=== PATIENT | female | born 1950 | race Caucasian/White ===

== ENCOUNTER 2018-11-04 16:55 | Inpatient (IN) ==
[2018-11-04] MEDS ORDERED: AMBIEN PO PRN (17:12)
[2018-11-04] MEDS ORDERED: NS 1,000 ML IV SCH (17:12)
[2018-11-04] MEDS ORDERED: TYLENOL PO PRN (17:12)
[2018-11-04 17:55] LABS: MCH 30.9 PG (27-31); MCHC 32.5 g/dL (33-37); MPV 9.9 FL (7.4-10.4); RBC 4.21 XMIL (4.2-5.4); RDW 13.6 % (11.5-14.5); WBC 7.75 X1000 (4.8-10.8)
[2018-11-04] MEDS: FLAGYL 500 MG/NS 500 MG/100 ML IVPB IV SCH ×2 (19:13→22:28)
[2018-11-04 19:25] LABS: CALCIUM 9.1 mg/dL (8.8-10.2); CREATININE 1.1 mg/dL (0.5-0.9); POTASSIUM 3.5 mmol/L (3.5-5.1)
[2018-11-04] MEDS ORDERED: LOPRESSOR PO SCH (21:00)
[2018-11-04] MEDS: MYSOLINE PO SCH (21:37)
[2018-11-04] MEDS: BUSPAR PO SCH (21:38)
[2018-11-04] MEDS: LOVENOX SUBQ SCH (21:39)
[2018-11-04] MEDS: LIPITOR PO SCH (21:39)
[2018-11-04] MEDS ORDERED: NORCO-10 PO ONE (22:10)
[2018-11-04] MEDS: PHENERGAN IV PRN (22:49)
[2018-11-05] MEDS: FLAGYL 500 MG/NS 500 MG/100 ML IVPB IV SCH ×3 (05:11→16:25)
[2018-11-05] MEDS ORDERED: NS 250 ML IV ONE (07:30)
[2018-11-05] MEDS ORDERED: NS 500 ML IV ONE (08:41)
[2018-11-05] MEDS: MYSOLINE PO SCH ×2 (08:51→20:17)
[2018-11-05] MEDS: ASPIRIN PO SCH (08:51)
[2018-11-05] MEDS: PAXIL PO SCH (08:51)
[2018-11-05] MEDS: BUSPAR PO SCH ×2 (08:52→20:16)
[2018-11-05] MEDS: NORCO-10 PO SCH ×2 (08:54→20:16)
[2018-11-05] MEDS: FLEXERIL PO SCH ×2 (08:56→20:17)
[2018-11-05] MEDS ORDERED: FLEXERIL PO SCH (09:00)
[2018-11-05 09:53] LABS: CALCIUM 8.4 mg/dL (8.8-10.2); CREATININE 1.1 mg/dL (0.5-0.9); POTASSIUM 3.3 mmol/L (3.5-5.1)
[2018-11-05] MEDS: SODIUM CHLORIDE 0.9% INJ PRN (11:52)
[2018-11-05] MEDS: PHENERGAN IV PRN ×2 (11:52→20:15)
[2018-11-05] MEDS ORDERED: KLOR-CON PO ONE (12:15)
[2018-11-05] MEDS: LEVAQUIN 500 MG/D5W 500 MG/100 ML IVPB IV SCH (13:08)
[2018-11-05] MEDS: NS 1,000 ML IV SCH (13:08)
[2018-11-05] MEDS: LIPITOR PO SCH (20:16)
[2018-11-05] MEDS: AMBIEN PO PRN (20:17)
[2018-11-05] MEDS: LOVENOX SUBQ SCH (20:24)
[2018-11-06] MEDS: FLAGYL 500 MG/NS 500 MG/100 ML IVPB IV SCH ×5 (01:20→23:04)
[2018-11-06] MEDS: NS 1,000 ML IV SCH ×2 (02:28→16:45)
[2018-11-06] MEDS: SODIUM CHLORIDE 0.9% INJ PRN ×2 (02:29→23:04)
[2018-11-06] MEDS: PHENERGAN IV PRN ×4 (02:29→23:04)
[2018-11-06] MEDS: ASPIRIN PO SCH (08:24)
[2018-11-06] MEDS: BUSPAR PO SCH ×2 (08:24→20:59)
[2018-11-06] MEDS: MYSOLINE PO SCH ×2 (08:24→20:58)
[2018-11-06] MEDS: PAXIL PO SCH (08:25)
[2018-11-06] MEDS: NORCO-10 PO SCH ×2 (08:25→20:58)
[2018-11-06 09:18] LABS: AGAP 5; CHLORIDE 108 mmol/L (98-107); POTASSIUM 3.5 mmol/L (3.5-5.1); SODIUM 139 mmol/L (136-145); TCO2 26 mmol/L (25-35)
[2018-11-06 09:19] LABS: BUN 10 mg/dL (8-22); CALCIUM 8.2 mg/dL (8.8-10.2); COSMO 276; CREATININE 0.9 mg/dL (0.5-0.9); ESTIMATED GFR > 60; GLUCOSE 96 mg/dL (70-104)
[2018-11-06] MEDS: FLEXERIL PO SCH ×2 (09:37→20:59)
[2018-11-06 09:46] LABS: PREALBUMIN 16.3 mg/dL (20-40)
[2018-11-06 09:48] LABS: HEMATOCRIT 30.9 % (37.0-47.0); HEMOGLOBIN 10.1 g/dL (12.0-16.0); MCH 30.7 PG (27-31); MCHC 32.7 g/dL (33-37); MCV 93.9 FL (81-99); MPV 9.8 FL (7.4-10.4); RBC 3.29 XMIL (4.2-5.4); RDW 13.5 % (11.5-14.5); WBC 5.31 X1000 (4.8-10.8)
[2018-11-06] MEDS: LEVAQUIN 500 MG/D5W 500 MG/100 ML IVPB IV SCH (12:46)
[2018-11-06] MEDS: LIPITOR PO SCH (20:58)
[2018-11-06] MEDS: AMBIEN PO PRN (20:58)
[2018-11-06] MEDS: LOVENOX SUBQ SCH (20:59)
[2018-11-07] MEDS: NS 1,000 ML IV SCH ×2 (03:03→05:49)
[2018-11-07] MEDS: FLAGYL 500 MG/NS 500 MG/100 ML IVPB IV SCH (05:22)
[2018-11-07] MEDS ORDERED: BOOSTRIX VACCINE IM ONE (08:06)
[2018-11-07] MEDS: BUSPAR PO SCH (08:48)
[2018-11-07] MEDS: NORCO-10 PO SCH (08:49)
[2018-11-07] MEDS: MYSOLINE PO SCH (08:49)
[2018-11-07] MEDS: FLEXERIL PO SCH (08:49)
[2018-11-07] MEDS: ASPIRIN PO SCH (08:49)
[2018-11-07] MEDS: PAXIL PO SCH (08:50)
[2018-11-07] MEDS ORDERED: LEVAQUIN PO SCH (09:00)
[2018-11-07 09:07] VITALS: BP 126/51
[2018-11-07] MEDS ORDERED: FLAGYL PO SCH (13:00)
--- NOTE | 2018-11-07 14:47 | PROGRESS NOTE ---
DATE: 11/05/2018 SUBJECTIVE: Mrs. Dahl has had no further nausea, vomiting or diarrhea. She is tolerating clear liquids without nausea, vomiting or worsening abdominal pain. OBJECTIVE: Temperature 98.1 degrees, pulse 77, respiratory rate 18, blood pressure 98/45. CV: Regular rate and rhythm. Lungs: Clear. Abdomen: Soft, nontender with active bowel sounds, no hepatosplenomegaly, no abdominal bruits. ASSESSMENT/PLAN: 1. Orthostatic hypotension secondary to volume depletion due to gastrointestinal losses. 2. Blood pressure is a little bit low this morning at 98/45. I will hold the metoprolol. I will give her another liter of fluid. 3. We will advance her to a gastrointestinal soft diet. cc: Satya Costello MD
--- NOTE | 2018-11-07 18:01 | PROGRESS NOTE ---
DATE: 11/05/2018 SUBJECTIVE: I came by to see Ms. Dahl again during lunch. Since I saw her this morning, she has had additional episodes of watery explosive diarrhea. Stool studies were negative for C. difficile toxin and antigen. Her blood pressure was low at 98/40. She feels dizzy and lightheaded. OBJECTIVE: Temperature 97.9 degrees, pulse 74, respirations 18, BP 90/43. CV: Regular rate and rhythm. Lungs clear. Abdomen soft, diffusely tender. No rebound or guarding. ASSESSMENT AND PLAN: Volume depletion secondary to gastrointestinal losses. I suspect that she has some sort of colitis. We will continue intravenous Flagyl and add intravenous Levaquin 500 mg daily. We will continue to hold metoprolol as well as Lasix. We will began normal saline at 75 mL/h. Given her clinical presentation and comorbid condition, I do not believe that she is stable for discharge. We will switch her from outpatient status to inpatient status. cc: Satya Costello MD
--- NOTE | 2018-11-09 05:01 | DISCHARGE SUMMARY ---
ADMISSION DATE: 11/04/2018 DISCHARGE DATE: 11/07/2018 DISCHARGE DIAGNOSES: 1. Bacterial colitis. 2. Volume depletion secondary to gastrointestinal losses. 3. Parkinson disease. 4. Mixed hyperlipidemia. 5. Gastroesophageal reflux disease without esophagitis. 6. Chronic pain disorder. 7. Major depression. 8. Orthostatic hypotension. 9. Chronic congestive heart failure secondary to diastolic dysfunction. DISCHARGE INSTRUCTIONS: 1. Return to clinic in 1 week to see me, Dr. Jimbo Costello, in anticipation of a transition of care visit. 2. Activity as tolerated. 3. GI soft diet. 4. Medications: BuSpar 7.5 mg b.i.d., metronidazole 250 mg t.i.d. for 5 days, Flexeril 10 mg b.i.d., Levaquin 500 mg daily for 5 days, Wilmot 10 one q.12 hours p.r.n. pain, Paxil 10 mg daily, primidone 250 mg daily, Phenergan 25 mg q.6 hours as needed for nausea and vomiting, omeprazole 40 mg daily, aspirin 325 mg daily, atorvastatin 80 mg at bedtime, zolpidem CR 6.25 mg at bedtime p.r.n. insomnia, fentanyl pain pump. DISCHARGE PHYSICAL EXAMINATION: General: This is a well-developed, well-nourished 68-year-old lady in no apparent distress. She is afebrile. Vital signs are stable. Cardiovascular: Regular rate and rhythm. Lungs: Clear. Abdomen: Soft, nontender, with active bowel sounds. No hepatosplenomegaly. No abdominal bruits. SUMMARY: Mrs. Dahl presented to my office with nausea, vomiting and explosive watery diarrhea. She was orthostatic in my office. I initially admitted her as an outpatient to [facility] where we cautiously rehydrated her with normal saline and began IV Flagyl pending stool studies. We began clear liquids on the morning of 11/05/2018. She had no further diarrhea since admission and was able to tolerate clear liquids. Her blood pressure was low at 98/45. We held the metoprolol. We gave her a bolus of normal saline. Because of the low blood pressure, we did not feel that she was ready for discharge and she was converted from outpatient status to inpatient status. On 11/06/2018, she reported that she had several episodes of diarrhea on the afternoon and evening of 11/05/2018. Her blood pressure was trending up with fluids. Stool studies were negative for C. difficile toxin. I added Levaquin 500 mg IV daily. Her nausea, vomiting and diarrhea improved and we were able to switch her to a GI soft diet. She was able to tolerate a GI soft diet at breakfast and lunch on 11/07/2018 without nausea, vomiting, or diarrhea. She will be continued on an additional 5-day course of oral Levaquin and Flagyl. Having reached maximum hospital benefit, the patient was discharged in stable condition. cc: Satya Costello MD
== END 2018-11-07 12:32 | disposition home or self-care (01) | DRG 372 ==
LOC: DIRADM → 3N 16:55
PROVIDERS: ADMIT Internal Medicine; ATTEND Internal Medicine
CPT/HCPCS: 80048; 84134; 85027; 87324; 87449; 90715; A9270; J1650; J1956; J2550; J7030; J7040; S0030

== ENCOUNTER 2019-01-08 15:21 | Inpatient (IN) ==
[2019-01-08 16:32] LABS: BILIRUBIN URINE NEGATIVE (NEGATIVE); BLOOD URINE 3+ (NEGATIVE); CLARITY VERY CLOUDY (CLEAR); COLOR YELLOW; GLUCOSE URINE NEGATIVE (NEGATIVE); KETONE URINE NEGATIVE (NEGATIVE); LEUKOCYTES URINE 2+ (NEGATIVE); NITRITE URINE POSITIVE (NEGATIVE); PROTEIN URINE 1+(30 mg/dL) mg/dL (NEGATIVE); UROBILINOGEN URINE NORMAL
[2019-01-08 16:43] LABS: BASO# 0.02 X1000 (0.0-0.2); BASO% 0.2 % (0.0-0.8); EOS# 0.21 X1000 (0.0-0.7); EOS% 2.6 % (0.0-10.0); HEMATOCRIT 36.9 % (37.0-47.0); HEMOGLOBIN 12.5 g/dL (12.0-16.0); IMM GRAN# 0.02 X1000 (0.0-0.04); IMM GRAN% 0.2 % (0.0-0.5); LYMPH# 2.42 X1000 (1.2-3.4); LYMPH% 29.7 % (20.5-51.1); MCH 31.3 PG (27-31); MCHC 33.9 g/dL (33-37); MCV 92.5 FL (81-99); MONO# 0.56 X1000 (0.11-0.59); MONO% 6.9 % (1.7-9.3); MPV 10.2 FL (7.4-10.4); NEUT# 4.93 X1000 (1.4-6.5); NEUT% 60.4 % (42.2-75.2); PLT 188 X1000 (130-400); RBC 3.99 XMIL (4.2-5.4); RDW 13.6 % (11.5-14.5); WBC 8.16 X1000 (4.8-10.8)
[2019-01-08 16:53] LABS: AGAP 10; ALBUMIN 3.5 g/dL (3.5-5.0); ALKALINE PHOSPHATASE 137 U/L (32-104); BUN 13 mg/dL (8-22); CALCIUM 8.3 mg/dL (8.8-10.2); CHLORIDE 101 mmol/L (98-107); COSMO 273; CREATININE 0.9 mg/dL (0.5-0.9); ESTIMATED GFR > 60; GLUCOSE 108 mg/dL (70-104); GOT 21 U/L (10-30); GPT 12 U/L (10-36); POTASSIUM 3.5 mmol/L (3.5-5.1); SODIUM 136 mmol/L (136-145); TCO2 25 mmol/L (25-35); TOTAL PROTEIN 7.1 g/dL (6.3-8.3)
--- NOTE | 2019-01-08 17:22 | PROVIDER DOCUMENTATION ---
This chart was entered by Sidra Hull Scribe, acting as scribe for Michael Chu MD. HPI-General Adult - General Chief Complaint: UTI Symptoms Stated Complaint: UTI Time Seen by Provider: 01/08/19 15:25 Source: patient, EMS (first response) Allergies/Adverse Reactions: Patient Allergies Allergy/AdvReac Type Severity Reaction Status Date / Time Penicillins Allergy Severe ANAPHYLAXIS Verified 01/19/17 18:49 ceftriaxone [From Rocephin] Allergy HIVES Verified 01/19/17 18:49 ibandronate sodium Allergy "severe Verified 01/19/17 18:49 [From Boniva] intestinal problems" nitrofurantoin Allergy HIVES Verified 01/19/17 18:49 macrocrystalline * [From Macrodantin] ondansetron HCl * Allergy HIVES Verified 01/19/17 18:49 [From Zofran (as hydrochloride)] vancomycin Allergy HIVES Verified 01/19/17 18:49 Home Medications: Home Medication List Medication Instructions Recorded Confirmed Last Taken Type Promethazine [Phenergan] 25 mg PO Q6H PRN PRN 03/03/16 11/04/18 1 Day Ago History ~11/03/18 ATORVAstatin [Lipitor] 80 mg PO HS 01/11/17 11/04/18 1 Day Ago History ~11/03/18 Aspirin 325 mg PO DAILY 01/11/17 11/04/18 1 Day Ago History ~11/03/18 Omeprazole 40 mg PO DAILY 01/11/17 11/04/18 1 Day Ago History ~11/03/18 Hydrocodone/APAP 10 mg/325 mg 1 ea PO Q12H PRN PRN 11/04/18 11/04/18 1 Day Ago History [Belsano-10] ~11/03/18 Zolpidem C.r. [Ambien Cr] 6.25 mg PO QHS 11/04/18 11/04/18 1 Day Ago History ~11/03/18 Buspirone [Buspar] 7.5 mg PO BID tab 11/07/18 Unknown Rx Cyclobenzaprine [Flexeril] 10 mg PO BID tab 11/07/18 Unknown Rx Hydrocodone/APAP 10 mg/325 mg 1 ea PO BID tab 11/07/18 Unknown Rx [Belsano-10] Levofloxacin [Levaquin] 500 mg PO DAILY #5 tab 11/07/18 Unknown Rx Metronidazole [Flagyl] 250 mg PO TID #15 tab 11/07/18 Unknown Rx Paroxetine [Paxil] 10 mg PO DAILY tab 11/07/18 Unknown Rx Primidone [Mysoline] 250 mg PO BID tab 11/07/18 Unknown Rx - History of Present Illness -Gen Adult Nature of Presenting Problems: 68 yowf presents to the ed via ems (first response) with possible UTI. pt was at [facility] and rehab was released today per ems with no where to go home to and was told to bring to ed. pt has been told she is accepted to [facility] but paperwork is not completed so pt can not be accepted there as well. pt is tearful on exam and has extensive medical hx. pt had bladder removed and has ostomy. pt is depressed on exam and has hx of chronic pain but denies any new pain or complaint Location of Pain/Injury: reports: none Pain Radiation: reports: no radiation Quality of Pain: reports: other (has chronic pain but denies new pain) Severity: reports: mild Onset/Duration: reports: unsure Timing: reports: still present Context/Activities at Onset: reports: light activity Modifying Factors: improves with: nothing Associated Symptoms: reports: back/neck pain (chronic), genitourinary problems (possible UTI). denies: chest pain, cough, dizziness, nausea, shortness of breath, vomiting Similar Symptoms Previously?: Yes (frequent UTI) Recently seen or treated by another doctor?: No Review of Systems - Adult - REVIEW OF SYSTEMS - ADULT Constitutional: denies: chills, fever Eyes: reports: no symptoms reported Ears, Nose, Mouth & Throat: reports: no symptoms reported Cardiovascular: denies: chest pain, syncope Respiratory: denies: shortness of breath, wheezing Gastrointestinal: reports: no symptoms reported Genitourinary: reports: see HPI, frequent UTI's, other (urine is cloudy in orozco bag) Musculoskeletal: reports: see HPI, neck pain (chronic) Integumentary: reports: no symptoms reported Neurological: denies: dizziness/vertigo, headache/migraines Psychiatric: reports: no symptoms reported Endocrine: reports: no symptoms reported Hematologic/Lymphatic: reports: no symptoms reported Allergic/Immunologic: reports: no symptoms reported All Other Systems: Reviewed and Negative Past History - Adult - PAST MEDICAL HISTORY-ADULT Review of Records: reports: Old Records Reviewed, Nursing Assessment Review, Medications Reviewed, Social history reviewed & non-contributory. Major Childhood Illnesses: reports: denies history Cardiovascular: reports: CHF Respiratory: reports: denies history Gastrointestinal: reports: GERD Obstetrical/Gynecological: reports: denies history Genitourinary: reports: kidney disease Musculoskeletal: reports: chronic pain Neurological: reports: Parkinson's Psychiatric: reports: denies history Endocrine/Immune: reports: denies history Other Conditions: reports: denies history - PRIOR SURGERIES/PROCEDURES Surgical/Procedure History: reports: appendectomy, cholecystectomy, back/neck (neck sx), other (removed bladder) - IMMUNIZATION STATUS Childhood Immunizations: See Nurse Assessment Flu Vaccine: See Nurse Assessment - FAMILY HISTORY Family History: reviewed, not pertinent - SOCIAL HISTORY Smoking: denies Substance Use: denies Living Situation: care facility Physical Exam-General - PHYSICAL EXAM-ADULT Initial Vital Signs Reviewed: Yes - CONSTITUTIONAL General Appearance: alert, no apparent distress, thin - EYES Eyes: PERRL/EOMI, pink conjunctivae - HEAD, EARS, NOSE, MOUTH & THROAT HENMT: moist mucous membranes - NECK Neck: full range of motion, normal inspection - RESPIRATORY Respiratory: chest non-tender, lungs clear, normal breath sounds - CARDIOVASCULAR Cardiovascular: normal peripheral pulses, regular rate, rhythm - CHEST (BREASTS) Chest/Breast: deferred - GASTROINTESTINAL (ABDOMEN) Abdominal Exam: normal bowel sounds, non tender, soft, other (pt has ostomy and has had bladder removed) - LYMPHATIC Lymphatic: no adenopathy - MUSCULOSKELETAL Back Exam: normal inspection Extremity: normal capillary refill, pelvis stable - SKIN Integumentary: abrasion(s) (to left lateral forehead and healing), ecchymosis (to left forehead), pallor (generalized) - NEUROLOGIC Neurologic: grossly normal - PSYCHIATRIC Psych/Mental Status: normal thought content, normal thought process, oriented x 3, depressed affect Progress - PLAN OF CARE/RESULTS Progress/Plan/Lab Results: Vital Signs - 8 hr 01/08/19 15:29 Temperature 98.3 F Pulse Rate 91 H Respiratory Rate 20 Blood Pressure 126/59 O2 Sat by Pulse Oximetry 97 Orders Category Date Time Status CBC WITH ELECTRONIC DIFF [HEME] Stat Lab 01/08/19 15:25 Uncollected COMPREHENSIVE METABOLIC PANEL [CHEM] Stat Lab 01/08/19 15:25 Uncollected ua [URINALYSIS PL W/POSS RFLX CULT] [URINALYSIS] Stat Lab 01/08/19 15:25 Uncollected Result Diagrams: 01/08/19 16:10 01/08/19 16:10 - REASSESSMENT Reassessment #1 Time Reassessed: 16:05 (dr chu at bedside) Status: unchanged Reassessment #2 Time Reassessed: 17:01 (dr reynolds at [facility]) Status: unchanged - CONSULTS/PCP/HOSPITALIST Notification #1 *Consult/PCP/Hospitalist*: cele WATER QUALITY SPECIALIST for hospitalist Time Discussed: 17:10 Consult Disposition: Will see in ED Departure - Departure Date of Disposition Decision: 01/08/19 Time of Disposition Decision: 17:20 DIAGNOSIS: UTI (urinary tract infection) Disposition: ADMITTED INPATIENT 09 Certified Medical Emergency: Emergent Condition: Fair Referrals and Follow-Ups: None,PCP [Primary Care Provider] - - Critical Care Note This patient required my direct & personal management of CC.: Yes Total Time (mins): 32 Critical Care Statement: This patient required my direct personal management to treat or rule out processes, the absence of which, could potentiallly result in sudden, clinically significant life or limb threatening deterioration. Attestation - Physician/ HIREN Attestation Patient care was provided by Advanced Practice Provider:: No The physician spent face to face time with patient:: Yes Advanced Practice Provider documentation review:: Supervising physician onsite and consulted in the evaluation and care of this patient. The physician did have a face to face encounter with the patient. This chart was documented by the indicated scribe, (Sidra Hull Scribe) and accurately reflects the services I performed and decisions made by me, Michael Chu MD, as attested by the provider's signature.
[2019-01-08 17:31] LABS: URINE BACTERIA 3+ /HFP
[2019-01-08 17:32] LABS: URINE RBC 20-40 /HPF (<10)
[2019-01-08 17:33] LABS: URINE CAST NONE SEEN /LPF; URINE EPITHELIAL CELLS <10 /HPF (<10); URINE YEAST NONE SEEN /HPF
[2019-01-08 17:34] LABS: URINE CRYSTAL TRIPLE PHOS PRESENT /HPF; URINE SOURCE CATH
[2019-01-08] MEDS ORDERED: ATIVAN IV ONE (18:56)
--- NOTE | 2019-01-08 19:02 | HISTORY AND PHYSICAL ---
ADDENDUM: Patient seen and examined. It does appears as though she has a probable urinary tract infection. She is confused, disoriented. We are going to admit her to the hospital, antibiotics, and will follow. cc: Leander Rodriguez MD
[2019-01-08] MEDS ORDERED: ATIVAN PO PRN (19:05)
[2019-01-08] MEDS ORDERED: DUONEB (A & A) INH PRN (19:05)
[2019-01-08] MEDS ORDERED: TYLENOL PO PRN (19:13)
[2019-01-08] MEDS ORDERED: NS 1,000 ML IV SCH (19:15)
[2019-01-08] MEDS ORDERED: HALDOL PO SCH (19:15)
--- NOTE | 2019-01-08 20:09 | HISTORY AND PHYSICAL ---
PRIMARY CARE PHYSICIAN: Satya Costello MD. CHIEF COMPLAINT: Possible urinary tract infection. HISTORY OF PRESENT ILLNESS: This is a 68-year-old female who presents to the emergency room via EMS from [facility]. According to the emergency room physician's note the patient was released from [facility] this afternoon with nowhere to go, and EMS was told by [facility] staff to bring the patient to the emergency room. Reportedly she was accepted to [facility] but paperwork was not complete so they could not accept the patient after discharge. 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 She denies any pain. She does cry at intervals, asking why her family is not outside in the car to pick her up and take her home. Past medical history is taken from a discharge summary on 11/08/2018. PAST MEDICAL HISTORY: 1. Parkinson's disease. 2. Mixed hyperlipidemia. 3. Gastroesophageal reflux disease without esophagitis. 4. Chronic pain disorder. 5. Major depression. 6. History of orthostatic hypotension. 7. Chronic congestive heart failure secondary to diastolic dysfunction. PAST SURGICAL HISTORY: Cystectomy with ileal conduit, appendectomy, cholecystectomy, hysterectomy, neck surgery, and pain pump x9. SOCIAL HISTORY: Unable to obtain from the patient. REVIEW OF SYSTEMS: Unable to obtain. PHYSICAL EXAMINATION: GENERAL: This is a 68-year-old female who is lying on a stretcher in the emergency room tearful at intervals. VITAL SIGNS: Blood pressure is 106/80 with a heart rate of 100, respirations 18, temperature is 98.2 degrees oral with room air saturations of 97%. CARDIOVASCULAR: Regular rate and rhythm. S1 and S2 are appreciated. EXTREMITIES: Peripheral pulses are palpable x4 extremities. PULMONARY: Breath sounds are clear with no increased work of breathing noted. Chest rises and falls symmetrically with respiration. GASTROINTESTINAL: Abdomen is soft, nontender and nondistended with bowel sounds in all 4 quadrants. GENITOURINARY: Urostomy stoma is noted to be pink and intact with cloudy kar urine draining into bag. NEUROLOGIC: She is alert. She is disoriented. SKIN: Warm and dry. She does have bruising to her left forehead. LABORATORY DATA: WBC is 8.1 with hemoglobin 12.5, hematocrit 36.9, and platelets of 188,000. Sodium 136, potassium 3.5, BUN 13, creatinine 0.9 with a glucose of 10.8. Urinalysis reveals 1+ protein, 3+ blood, positive nitrite, with 20 to 40 microscopic red blood cells, 10 to 20 microscopic white blood cells, and 3+ bacteria. Urine culture is pending. ASSESSMENT AND PLAN: 1. Urinary tract infection. Urine culture is pending. We will continue doxycycline 100 mg p.o. b.i.d. as is from rehab, and further antibiotics will be culture driven. 2. Altered mental status. She will be placed on fall precautions with neurologic checks every 4 hours. Of note, per EMS report, the patient is presumably at her baseline. 3. Parkinson's disease. We will continue her home medications once verified. 4. Gastroesophageal reflux disease without esophagitis. We will continue her proton pump inhibitor. 5. History of orthostatic hypotension. She is placed on fall precautions at present. 6. Chronic congestive heart failure secondary to diastolic dysfunction. 7. DVT prophylaxis with SCDs. 8. The patient will be placed on telemetry. 9. We will consult Electric Meter Tester for discharge planning. 10. We will check a CMP and CBC in the morning. We will continue her Haldol with p.r.n. Ativan and p.r.n. breathing treatments. Further treatments pending hospital course. This plan was discussed with Dr. Rodriguez. Dictated by DEONTE Weathers for Leander Rodriguez MD cc: DEONTE Weathers MD [facility]
[2019-01-08] MEDS ORDERED: DOXYCYCLINE PO SCH (21:00)
[2019-01-08] MEDS: MYSOLINE PO SCH (21:17)
[2019-01-09] MEDS: HALDOL PO SCH ×3 (03:55→20:20)
[2019-01-09] MEDS ORDERED: TOBRAMYCIN 80 MG in NS 50 ML IV ONE (07:02)
[2019-01-09 07:06] LABS: BASO# 0.02 X1000 (0.0-0.2); BASO% 0.3 % (0.0-0.8); EOS# 0.28 X1000 (0.0-0.7); EOS% 4.3 % (0.0-10.0); HEMATOCRIT 35.1 % (37.0-47.0); HEMOGLOBIN 11.6 g/dL (12.0-16.0); LYMPH# 1.96 X1000 (1.2-3.4); LYMPH% 30.2 % (20.5-51.1); MCH 30.5 PG (27-31); MCV 92.4 FL (81-99); MONO# 0.49 X1000 (0.11-0.59); MONO% 7.5 % (1.7-9.3); MPV 10.3 FL (7.4-10.4); NEUT# 3.75 X1000 (1.4-6.5); NEUT% 57.7 % (42.2-75.2); PLT 211 X1000 (130-400); RDW 13.7 % (11.5-14.5)
[2019-01-09] MEDS ORDERED: LEVAQUIN 500 MG/D5W 500 MG/100 ML IVPB IV SCH (07:15)
[2019-01-09 07:24] LABS: AGAP 10; ALB/GLOB RATIO 0.9; ALBUMIN 3.1 g/dL (3.5-5.0); ALKALINE PHOSPHATASE 127 U/L (32-104); BUN 14 mg/dL (8-22); CALCIUM 7.7 mg/dL (8.8-10.2); CHLORIDE 106 mmol/L (98-107); COSMO 279; CREATININE 0.7 mg/dL (0.5-0.9); ESTIMATED GFR > 60; GLUCOSE 90 mg/dL (70-104); GOT 18 U/L (10-30); GPT 11 U/L (10-36); POTASSIUM 3.5 mmol/L (3.5-5.1); SODIUM 140 mmol/L (136-145); TCO2 24 mmol/L (25-35); TOTAL PROTEIN 6.7 g/dL (6.3-8.3)
--- NOTE | 2019-01-09 07:37 | PROGRESS NOTE ---
DATE: 01/09/2019 Ms. Luann Dahl is a 68-year-old, lady with a history of multiple medical problems, with a history of mixed hyperlipidemia, Parkinson's disease, previous cerebrovascular accident, depression, and chronic pain syndrome, who is well known to me. She was admitted for hospice care to [facility] several months ago. Apparently, she was admitted to [facility] for 5 day respite care. Apparently, at the time of discharge from [facility], there was no one available to pick her up and the EMS service was directed to bring her to the ER at [place] because of disorientation. Upon presentation in the ER, she was noted to be confused and disoriented. Her speech was rambling. She had apparently been treated for a urinary tract infection with oral doxycycline. Her urinalysis was positive for blood, nitrites, and leukocyte esterase. When I saw her this morning, she was still confused and disoriented. She could tell me her name. She knew who I was. She could not tell me the year or where she was. She has had no fever, chills, nausea, or vomiting. OBJECTIVE: Vital Signs: Temperature 98.2 degrees, pulse 74, respirations 20, BP 107/48. CV: Regular rate and rhythm. Lungs: Clear. Abdomen: Soft, nontender, with active bowel sounds. Labs: Various laboratory studies were obtained. A CBC demonstrated a white count of 6.5, hemoglobin 11.6, hematocrit 35.1, and a platelet count of 211,000. Electrolytes demonstrated the following: Sodium 136, potassium 3.5, BUN 13, creatinine 0.9, and glucose 108. ASSESSMENT AND PLAN: 1. Metabolic encephalopathy secondary to suspected urinary tract infection. We will continue gentle hydration in the face of chronic diastolic congestive heart failure. I will discontinue the doxycycline and have switched her to intravenous tobramycin and Levaquin pending blood and urine cultures. 2. Parkinson's disease. She is largely wheelchair-bound. We will continue the primidone 250 mg twice a day. 3. Chronic pain syndrome. She is followed at the pain clinic. She is on a morphine pump and has oxycodone ER 10 mg every 4-6 hours as needed for pain. cc: MD CARL Mosqueda
[2019-01-09] MEDS: MYSOLINE PO SCH ×2 (08:32→20:20)
[2019-01-09] MEDS: PAXIL PO SCH (08:32)
--- NOTE | 2019-01-09 09:25 | Diag Imaging Result Doc PS360 ---
EXAM: CHEST-PORTABLE 01/09/2019 HISTORY: CHF TECHNIQUE: AP portable at 0915 COMMENT: There are no previous studies available for comparison. There is some questionable peribronchial thickening in the right upper lobe. There are no focal pulmonary opacities. The heart size and pulmonary vascularity are within normal limits. IMPRESSION: The possibility of bronchitis cannot be excluded. No evidence of acute disease otherwise. Electronically signed by Jr Reich 01/09/2019 9:23 AM
--- NOTE | 2019-01-09 09:34 | Diag Imaging Result Doc PS360 ---
CT HEAD W/O CONTRAST - 01/09/2019 INDICATION: mental status changes with previous CVA COMPARISON: None FINDINGS: There is a very small left superior subdural collection. This is isodense with normal fluid. No mass effect. No evidence of acute hemorrhage. There is mild cerebral white matter chronic microvascular disease. The skull is intact. The sinuses, mastoids, and middle ears are clear. IMPRESSION: Small left subdural fluid density collection. This may represent either a subdural effusion or a chronic subdural hemorrhage. Recommend a brain MRI preferably without and with intravenous contrast. This exam was performed using automated exposure control, adjustment of mA or kV according to patient size, and/or use of iterative reconstruction technique Electronically signed by Isaiah Cardozo 01/09/2019 9:32 AM
[2019-01-09] MEDS: OXYCONTIN PO PRN ×4 (09:53→22:48)
[2019-01-09] MEDS: RESTORIL PO SCH (20:20)
[2019-01-10] MEDS: HALDOL PO SCH (04:10)
[2019-01-10] MEDS: OXYCONTIN PO PRN ×5 (04:10→20:26)
[2019-01-10] MEDS: MYSOLINE PO SCH ×2 (08:35→20:25)
[2019-01-10] MEDS: CIPRO PO SCH ×2 (08:35→20:25)
[2019-01-10] MEDS: PAXIL PO SCH (08:35)
[2019-01-10] MEDS: PATIENT'S OWN MED IM SCH (12:34)
[2019-01-10] MEDS ORDERED: PHENERGAN IV PRN (13:15)
[2019-01-10] MEDS ORDERED: SODIUM CHLORIDE 0.9% INJ PRN (13:15)
--- NOTE | 2019-01-10 13:44 | PROGRESS NOTE ---
DATE: 01/10/2019 Mrs. Dahl was admitted to [facility] with a metabolic encephalopathy secondary to underlying urinary tract infection. Urine culture grew out Proteus penneri sensitive to multiple antibiotics. Clinically, she continues to improve. She was much more alert and interactive this morning. She was oriented to name, place, and time. She does have a chronic indwelling ileostomy and revision of ileostomy. She denies any nausea vomiting, fever or chills. OBJECTIVE: She is afebrile. Pulse 82, respirations 15, BP 112/49. CV: Regular rate and rhythm. Lungs: Clear. Abdomen: Soft, nontender, with active bowel sounds. ASSESSMENT AND PLAN: Metabolic encephalopathy secondary to UTI. The encephalopathy has resolved. I will switch her to oral Cipro 500mg BID. cc: Satya Costello MD MTDD
--- NOTE | 2019-01-10 14:22 | DISCHARGE SUMMARY ---
ADMISSION DATE: 01/08/2019 DISCHARGE DATE: 01/11/2019 DISCHARGE DIAGNOSES: 1. Metabolic encephalopathy. 2. Urinary tract infection due to urinary indwelling catheter. 3. Major depression. 4. Gastroesophageal reflux disease. 5. Mixed hyperlipidemia. 6. Parkinson's disease. 7. Previous cerebrovascular accident. DISCHARGE INSTRUCTIONS: 1. The patient will be transferred to [facility] in order to undergo short-term rehabilitation. 2. Activity as tolerated. 3. Healthy heart diet. MEDICATIONS: 1. Cipro 500 mg b.i.d. for 10 days. 2. Fentanyl pain pump per pain clinic. 3. Oxycodone ER 10 mg every 4 to 6 hours as needed. 4. Paxil 40 mg daily. 5. Primidone 250 mg b.i.d. 6. Restoril 30 mg at bedtime p.r.n. insomnia. DISCHARGE PHYSICAL EXAMINATION: General: This is a chronically ill-appearing, 68-year-old lady in no apparent distress. Vital Signs: She is afebrile. Vital signs are stable. Cardiovascular: Regular rate and rhythm. Lungs: Clear. Abdomen: Soft, nontender, with active bowel sounds. HOSPITAL COURSE: Ms. Dahl has a history of multiple medical problems including gastroesophageal reflux disease, Parkinson's disease, chronic pain syndrome secondary to cervical spinal stenosis, recurrent urinary tract infections, and a previous CVA, who was admitted to hospice earlier in the year. She underwent a 5 day respite care at [facility]. At the time of discharge, she was noted to be confused and disoriented. The patient was transferred to [facility] for further evaluation. Her initial CT scan demonstrated chronic white matter changes and an old very small subdural hematoma. Chest x-rays were clear. Her urinalysis was wildly abnormal. Urine and blood cultures were obtained. She was initially hydrated with normal saline and we began broad-spectrum antibiotics including Levaquin and tobramycin pending cultures. Cultures grew out Proteus. She was switched to oral Levaquin. Over the course of her hospitalization, her mental status improved significantly back to her baseline. She was alert and oriented to name, place and time at the time of discharge. She will complete a 10 day course of Cipro 500 mg b.i.d. as an outpatient. She has a history of Parkinson's disease. She was continued on primidone 250 mg b.i.d. Physical therapy was consulted to see the patient. She has a history of chronic pain syndrome. She is a patient at the pain clinic. She has an indwelling pain pump with fentanyl and uses Oxy-ER on a p.r.n. basis. Ms. Dahl understands that she cannot be readmitted to hospice care while undergoing short-term rehab. She has voiced to me and to members of her family that she wants to continue palliative measures only. She has stated that she does not want to be transferred again to the hospital in the event of an acute illness. She does have a Living Will and has stated that in the event of a cardiopulmonary arrest that no heroic measures should be undertaken and Code Blue Level 1 has been established. Unfortunately because of health issues, her is no longer able to care for her at home. Following completion of short-term rehab, we will look for long- term group home placement. Having reached maximum hospital benefit, the patient was discharged in stable condition. cc: Satya Costello MD MTDD
[2019-01-10] MEDS: RESTORIL PO SCH (20:25)
[2019-01-11 07:48] VITALS: BP 102/59
[2019-01-11] MEDS: PAXIL PO SCH (09:12)
[2019-01-11] MEDS: MYSOLINE PO SCH (09:12)
[2019-01-11] MEDS: CIPRO PO SCH (09:12)
[2019-01-11] MEDS: PATIENT'S OWN MED IM SCH (09:13)
[2019-01-11] MEDS: OXYCONTIN PO PRN (10:13)
== END 2019-01-11 10:15 | DRG 698 ==
LOC: P.ED 15:21 → SUPCPDRO 20:03 → 2N 20:03
PROVIDERS: ADMIT Internal Medicine; ATTEND Internal Medicine